=== PATIENT | male | born 1990 | race Caucasian/White ===

== ENCOUNTER → 2018-01-05 | Outpatient (CLI) | payer OTHER ==
[~2018-01-05] MED LIST: NORCO 325 MG-51 TAB PO; SEROQUEL 1100 MG/TAB PO; TUSS PO; ZOLOFT 100MG100 MG PO
== END ==
LOC: COL.RAD 08:53
DX: R20.8 Other disturbances of skin sensation (principal)
CPT/HCPCS: A9503

== ENCOUNTER → 2018-03-10 | Outpatient (CLI) | payer OTHER | LOC: COL.RAD 09:45 | DX: R20.2 Paresthesia of skin (principal) | CPT/HCPCS: A9503 ==